=== PATIENT | female | born 1985 | race Caucasian/White ===

== ENCOUNTER 2022-09-08 07:48 | Observation (INO) | payer OTHER ==
[~2022-09-08] VITALS: Ht 165.1 cm; Wt 122.5 kg
[2022-09-08] MEDS ORDERED: KETOROLAC TROMETHAMINE 30 MG/ML VIAL IV STA (08:00)
[2022-09-08] MEDS ORDERED: SODIUM CHLORIDE 0.9% 1000ML 1,000 ML IV STA (08:00)
[2022-09-08] MEDS ORDERED: ONDANSETRON HCL INJ 2MG/ML 2ML 2 MG/ML VIAL IV STA (08:00)
[2022-09-08 08:28] LABS: BASOPHILS % 0.4 % (0.0-1.0); EOSINOPHILS # (AUTO) 0.1 (0.0-0.4); EOSINOPHILS % 1.7 % (0.0-6.0); HEMATOCRIT 41.6 % (34.2-44.1); HEMOGLOBIN 12.9 g/dL (12.0-16.0); LYMPHOCYTES # (AUTO) 1.7 (1.0-3.2); LYMPHOCYTES % 23.2 % (18.0-39.1); MEAN CORPUSCULAR HEMOGLOBIN 27.4 pg (28-32); MEAN CORPUSCULAR VOLUME 88.3 fL (81-99); MONOCYTES # (AUTO) 0.6 (0.2-0.8); MONOCYTES % 7.5 % (4.4-11.3); NEUTROPHILS % 66.9 % (38.7-80.0); PLATELET COUNT 198 x10e3/uL (140-360); RED BLOOD COUNT 4.71 x10e6/uL (3.6-5.1)
[2022-09-08 08:58] LABS: ALANINE AMINOTRANSFERASE 144 IU/L (0-55); ALBUMIN 3.5 g/dL (3.5-5.0); ALKALINE PHOSPHATASE 123 IU/L (40-150); ANION GAP 9.6 mmol/L (8-16); BLOOD UREA NITROGEN 11 mg/dL (7-26); BUN/CREATININE RATIO 15 (6-25); CALCIUM 8.9 mg/dL (8.4-10.2); CARBON DIOXIDE 25 mmol/L (22-29); CHLORIDE 109 mmol/L (98-107); CREATININE, SERUM 0.72 mg/dL (0.57-1.11); GLUCOSE 96 mg/dL (74-118); LIPASE 41 U/L (8-78); POTASSIUM 3.6 mmol/L (3.5-5.1); SODIUM 140 mmol/L (136-145)
[2022-09-08] MEDS ORDERED: ONDANSETRON HCL INJ 2MG/ML 2ML 2 MG/ML VIAL IV PRN (11:30)
[2022-09-08] MEDS ORDERED: Morphine 4mg INJECTION 4 MG/ML INJ IV PRN (11:30)
[2022-09-08] MEDS: SODIUM CHLORIDE 0.9% 1000ML 1,000 ML IV SCH ×2 (12:36→15:38)
[2022-09-08] MEDS ORDERED: FERROUS SULFAT325 MG PO (15:46)
[2022-09-08] MEDS ORDERED: METHYLPHENIDATE30 M4 PO (15:46)
[2022-09-08] MEDS ORDERED: ACETAZOLAMIDE500 M1 PO (15:46)
[2022-09-08] MEDS ORDERED: ALBUTEROL0.63 MG/3 NEB (15:46)
[2022-09-08 16:28] VITALS: BP 108/73; PULSE 64; RESP 16; TEMP 98; O2SAT 100
[2022-09-08] MEDS ORDERED: NORETHINDRONE0.35 MG PO (16:39)
[2022-09-08 16:54] VITALS: BP 108/73; PULSE 64; RESP 16; TEMP 98; O2SAT 100
[2022-09-08] MEDS ORDERED: HYDRALAZINE HCL 20 MG/ML VIAL IV PRN (17:15)
[2022-09-08] MEDS ORDERED: ACETAMINOPHEN 325 MG TAB PO PRN (17:15)
[2022-09-08 20:38] VITALS: PULSE 70; RESP 16; O2SAT 100
[2022-09-08 20:53] VITALS: BP 111/62; PULSE 61; RESP 19; TEMP 97.9; O2SAT 100
[2022-09-08 21:45] VITALS: BP 111/62; PULSE 61; RESP 19; TEMP 97.9; O2SAT 100
[2022-09-09] VITALS (7 sets, daily range): BP systolic 111–145; BP diastolic 53–95; PULSE 67–85; RESP 16–18; TEMP 97.3–98.6; O2SAT 96–100
[2022-09-09] MEDS: SODIUM CHLORIDE 0.9% 1000ML 1,000 ML IV SCH ×4 (01:08→16:10)
[2022-09-09 06:22] LABS: BASOPHILS % 0.4 % (0.0-1.0); EOSINOPHILS # (AUTO) 0.3 (0.0-0.4); EOSINOPHILS % 5.4 % (0.0-6.0); HEMATOCRIT 39.3 % (34.2-44.1); HEMOGLOBIN 11.8 g/dL (12.0-16.0); LYMPHOCYTES # (AUTO) 1.6 (1.0-3.2); LYMPHOCYTES % 29.9 % (18.0-39.1); MEAN CORPUSCULAR HEMOGLOBIN 26.9 pg (28-32); MEAN CORPUSCULAR VOLUME 89.7 fL (81-99); MONOCYTES # (AUTO) 0.4 (0.2-0.8); NEUTROPHILS % 56.1 % (38.7-80.0); PLATELET COUNT 156 x10e3/uL (140-360); RED BLOOD COUNT 4.38 x10e6/uL (3.6-5.1)
[2022-09-09 06:46] LABS: ALBUMIN/GLOBULIN RATIO 1.1 (0.8-2.0); ANION GAP 9.6 mmol/L (8-16); CALCIUM 8.3 mg/dL (8.4-10.2); CREATININE, SERUM 0.61 mg/dL (0.57-1.11); POTASSIUM 3.6 mmol/L (3.5-5.1)
[2022-09-09 06:57] LABS: CHOL/HDL RATIO 4.4 (3.0-3.6); MAGNESIUM 1.9 MG/DL (1.3-2.1); PHOSPHORUS 2.6 MG/DL (2.3-4.7)
[2022-09-09 07:19] LABS: THYROID STIMULATING HORMONE 1.217 uIU/mL (0.350-4.940)
[2022-09-09 07:35] LABS: CLARITY,URINE CLEAR (CLEAR); COLOR,URINE YELLOW (YELLOW)
[2022-09-09 07:36] LABS: KETONES,URINE NEGATIVE (NEGATIVE); LEUKOCYTE ESTERASE ,URINE NEGATIVE (NEGATIVE); NITRITE,URINE NEGATIVE (NEGATIVE); PROTEIN,URINE DIPSTICK NEGATIVE (NEGATIVE); URINE UROBILINOGEN 0.2 mg/dL (0.2 - 1)
[2022-09-09 07:56] LABS: BACTERIA,URINE RARE /HPF; EPITHELIAL CELLS,URINE RARE /LPF; RBC,URINE 0-5 /HPF (0-5); WBC,URINE (MAN) 0-5 /HPF (0-5)
[2022-09-09] MEDS ORDERED: BUPIVACAINE 0.25% 30ML SDV ONE (12:24)
[2022-09-09] MEDS ORDERED: SUCCINYLCHOLINE CHLORIDE 20 MG/ML 10ML VIAL ONE (12:39)
[2022-09-09] MEDS ORDERED: NEOSTIGMINE 1 MG/ML 10ML VIAL ONE (12:39)
[2022-09-09] MEDS ORDERED: ONDANSETRON HCL INJ 2MG/ML 2ML 2 MG/ML VIAL ONE ×2 (12:39→15:08)
[2022-09-09] MEDS ORDERED: ROCURONIUM BROMIDE 10 MG/ML 5ML VIAL IV ONE (12:39)
[2022-09-09] MEDS ORDERED: KETOROLAC TROMETHAMINE 30 MG/ML VIAL ONE (12:39)
[2022-09-09] MEDS ORDERED: LIDOCAINE HCL 2% LOCAL INJ 5 ML SDV VIAL INJ ONE (12:39)
[2022-09-09] MEDS ORDERED: POVIDONE IODINE 0.05% 0.05 % ML PO ONE (12:39)
[2022-09-09] MEDS ORDERED: PROPOFOL IV EMULSION 10 MG/ML 20 ML VIAL ONE (12:39)
[2022-09-09] MEDS ORDERED: SEVOFLURANE INHAL SOLN 250 ML PEN BTL ONE (12:39)
[2022-09-09] MEDS ORDERED: GLYCOPYRROLATE INJ 0.2 MG/ML VIAL ONE (12:39)
[2022-09-09] MEDS ORDERED: FENTANYL CITRATE/PF 100MCG/2 ML INJ ONE ×2 (13:10→15:08)
[2022-09-09] MEDS ORDERED: DEXAMETHASONE SOD PHOS INJ 4 MG/ML SDV ONE (13:55)
[2022-09-09] MEDS ORDERED: HYDROCODONE/APAP 7.5MG-325MG 1 EA TAB PO PRN (15:00)
[2022-09-09] MEDS ORDERED: HYDROMORPHONE 1MG/1ML INJ IV PRN (15:00)
== END 2022-09-09 18:29 | disposition home or self-care (01) ==
LOC: ER 07:53 → ERHOLD 11:30 → MED/SURG3 14:13
PROVIDERS: ADMIT Internal Medicine; ATTEND Internal Medicine
DX: K80.12 Calculus of gallbladder with acute and chronic cholecystitis without obstruction (principal); R74.01 Elevation of levels of liver transaminase levels; K76.0 Fatty (change of) liver, not elsewhere classified; E66.01 Morbid (severe) obesity due to excess calories; Z20.822 Contact with and (suspected) exposure to COVID-19; Z68.41 Body mass index [BMI] 40.0-44.9, adult
CPT/HCPCS: 0223U; 36415 ×2; 47562; 74181; 76705; 80053 ×2; 80061; 81001; 81025; 83036; 83690; 83735; 84100; 84443; 84484; 85025 ×2; 88304; 94799 ×2; 99284; C1766; C9113 ×2; G0378 ×2; J0330; J0696 ×2; J1100; J1170; J1885 ×2; J2001; J2270; J2405 ×2; J2704; J2710; J3010; J7030 ×2